=== PATIENT | female | born 1980 | race Two or more races ===

== ENCOUNTER 2019-10-01 19:37 | Emergency (ER) | payer SELFPAY ==
[~2019-10-01] VITALS: Ht 152.4 cm; Wt 77.2 kg
[2019-10-01 20:23] LABS: BILIRUBIN,URINE SMALL (NEG); CLARITY,URINE CLEAR; COLOR,URINE YELLOW; NITRITE,URINE NEGATIVE (NEG); PH,URINE 5.5; PROTEIN,URINE 30 mg/dL (NEG-TRACE); UROBILINOGEN,URINE 0.2 mg/dL (0.2 mg/dL)
[2019-10-01 20:28] LABS: BACTERIA,URINE 0 /HPF (0-FEW); SQUAMOUS EPITHELIAL CELL,UR MOD /LPF
[2019-10-01] MEDS ORDERED: FAMOTIDINE 20 MG/2 ML VIAL IVP ONE (20:30)
[2019-10-01] MEDS ORDERED: ONDANSETRON PF 4 MG/2 ML VIAL. IV ONE (20:30)
[2019-10-01] MEDS ORDERED: IV NORMAL SALINE 1000ML BAG 1,000 ML IV ONE (20:30)
[2019-10-01 20:40] LABS: BASO # 0.1 x10^3/uL (0.0-0.2); BASO % 0 % (0-3); EOS # 0.3 x10^3/uL (0.0-0.7); EOS % 2 % (0-3); HEMATOCRIT 43.6 % (36.0-47.0); HEMOGLOBIN 14.4 g/dL (12.0-15.5); LYMPH # 2.4 x10^3/uL (1.0-4.8); LYMPH % 18 % (24-48); MEAN CORPUSCULAR HEMOGLOBIN 29 pg (25-35); MEAN CORPUSCULAR HGB CONC 33 g/dL (31-37); MEAN CORPUSCULAR VOLUME 88 fL (79-100); MONO % 8 % (0-9); NEUT # 9.6 x10^3/uL (1.8-7.7); NEUT % 72 % (31-73); PLATELET COUNT 279 x10^3/uL (140-400); RED BLOOD COUNT 4.96 x10^6/uL (3.50-5.40); RED CELL DISTRIBUTION WIDTH 13.1 % (11.5-14.5); WHITE BLOOD COUNT 13.4 x10^3/uL (4.0-11.0)
[2019-10-01 20:47] LABS: GFR 62.1; POTASSIUM 3.5 mmol/L (3.5-5.1)
[2019-10-01 20:54] LABS: ALBUMIN 4.4 g/dL (3.4-5.0); ALBUMIN/GLOBULIN RATIO 0.9 (1.0-1.7); TOTAL BILIRUBIN 0.6 mg/dL (0.2-1.0); TOTAL PROTEIN 9.5 g/dL (6.4-8.2)
[2019-10-01] MEDS ORDERED: IOHEXOL 300 MG/ML 100ML VIAL. ONE (21:26)
--- NOTE | 2019-10-01 22:09 | RAD ---
EXAM: CT Abdomen and Pelvis with IV contrast INDICATION: TECHNIQUE: Multi-detector row CT images were acquired from the lung bases through the abdomen and pelvis with the use of IV contrast. Sagittal and coronal images were acquired from the transaxial data. All CT scans performed at this facility utilize dose optimization techniques as appropriate to the exam, including the following: Automated exposure control and adjustment of the mA and/or KV according to patient size (this includes techniques or standardized protocols for targeted exams where dose is indication/reason for exam). IV CONTRAST: Administered ORAL CONTRAST: Not administered COMPARISON: None FINDINGS: LOWER CHEST: Unremarkable LIVER: Enlarged, low-density liver consistent with fatty infiltration diffusely. BILIARY SYSTEM: Gallbladder is unremarkable. Bile ducts are not dilated. PANCREAS: Unremarkable SPLEEN: Unremarkable ADRENALS: Unremarkable KIDNEYS & URETERS: Unremarkable BLADDER: Unremarkable REPRODUCTIVE ORGANS: Unremarkable GASTROINTESTINAL: The stomach, small bowel, and colon are unremarkable. The appendix is normal. MESENTERY/PERITONEUM/RETROPERITONEUM: Unremarkable VASCULAR: Unremarkable LYMPH NODES: No adenopathy OSSEOUS & SOFT TISSUES: Unremarkable IMPRESSION: Hepatomegaly and hepatic steatosis. Correlate for steatohepatitis. Otherwise no acute findings in the abdomen or pelvis on CT. Electronically signed by: Lauri Beverly MD (10/01/2019 10:07 PM) [id number]
[2019-10-01] MEDS ORDERED: ONDA-84 PO (22:33)
--- NOTE | 2019-10-01 22:34 | PHYS DOC ---
Past Medical History Past Medical History: No Pertinent History (SAUD BELTRAN APRN) Past Surgical History: No Surgical History (SAUD BELTRAN APRN) Smoking Status: Never Smoker Alcohol Use: None (SAUD BELTRAN APRN) Attending Signature I have participated in the care of this patient and I have reviewed and agree with all pertinent clinical information above including history, exam, and recommendations. (MARYJANE BUTLER MD) Adult General Chief Complaint Chief Complaint: NAUSEA/VOMITING/DIARRHA HPI HPI Patient is a 39 year old female, accompanied by her son, who presents to the emergency department with complaints of abdominal pain, nausea, vomiting, and diarrhea for the last 3 days. Patient also complains of having a headache, she denies any vision changes, numbness, tingling, weakness, or ear pain. Patient denies any fever, cough, shortness of breath, wheezing, chest pain, increased urinary frequency, dysuria, or hematuria. Patient states that she has had 7-8 episodes of vomiting in 7-8 episodes of diarrhea today. She denies any blood in her stools. She currently rates her pain 8 out of 10 on the pain scale, she d enies any alleviating factors. Patient reports her last menstrual cycle started today. (SAUD BELTRAN APRN) Review of Systems Review of Systems Complete ROS is negative unless otherwise noted in HPI. (SAUD BELTRAN APRN) Current Medications Current Medications Current Medications Medications (Trade) Dose Ordered Sig/Isaiah Start Time Stop Time Status Last Admin Dose Admin Famotidine (Pepcid Vial) 20 mg 1X ONCE 10/01/19 20:30 10/01/19 20:31 DC 10/01/19 20:46 20 MG Iohexol (Omnipaque 300 Mg/ml) 100 ml STK-MED ONCE 10/01/19 21:26 10/01/19 21:26 DC Ondansetron HCl (Zofran) 4 mg 1X ONCE 10/01/19 20:30 10/01/19 20:31 DC 10/01/19 20:46 4 MG Sodium Chloride 1,000 ml @ 1,000 mls/hr 1X ONCE 10/01/19 20:30 10/01/19 21:29 DC 10/01/19 20:46 1,000 MLS/HR (MARYJANE BUTLER MD) Allergies Allergies Allergies Coded Allergies Type Severity Reaction Last Updated Verified No Known Drug Allergies 10/01/19 No (MARYJANE BUTLER MD) Physical Exam Physical Exam See Above Constitutional: Well developed, well nourished, no acute distress, non-toxic appearance. [] HENT: Normocephalic, atraumatic, bilateral external ears normal, nose normal. [] Eyes: PERRLA, EOMI, conjunctiva normal, no discharge. [] Neck: Normal range of motion, no stridor. [] Cardiovascular:Heart rate regular rhythm, no murmur [] Lungs & Thorax: Bilateral breath sounds clear to auscultation, Respirations even and unlabored, no retractions, no respiratory distress [] Abdomen: Bowel sounds normal, soft, LLQ TTP, no rebound tenderness, no guarding, no masses, no pulsatile masses. [] Skin: Warm, dry, no erythema, no rash. [] Back: No CVA tenderness. [] Extremities: No cyanosis, ROM intact, no edema. [] Neurologic: Alert and oriented X 3, no focal deficits noted. [] Psychologic: Affect normal, judgement normal, mood normal. [] (SAUD BELTRAN APRN) Current Patient Data Vital Signs Vital Signs Date Time Temp Pulse Resp B/P (MAP) Pulse Ox O2 Delivery O2 Flow Rate FiO2 10/01/19 22:45 78 16 98/55 (69) 97 Room Air 10/01/19 20:02 98.3 98.3 (MARYJANE BUTLER MD) Lab Values Laboratory Tests Test 10/01/19 20:05 10/01/19 20:11 10/01/19 20:30 Urine Collection Type Unknown Urine Color Yellow Urine Clarity Clear Urine pH 5.5 Urine Specific [place] >=1.030 Urine Protein 30 mg/dL (NEG-TRACE) Urine Glucose (UA) Negative mg/dL (NEG) Urine Ketones (Stick) Negative mg/dL (NEG) Urine Blood Moderate (NEG) Urine Nitrite Negative (NEG) Urine Bilirubin Small (NEG) Urine Urobilinogen Dipstick 0.2 mg/dL (0.2 mg/dL) Urine Leukocyte Esterase Negative (NEG) Urine RBC 1-2 /HPF (0-2) Urine WBC 1-4 /HPF (0-4) Urine Squamous Epithelial Cells Mod /LPF Urine Bacteria 0 /HPF (0-FEW) Urine Mucus Marked /LPF POC Urine HCG, Qualitative Hcg negative (Negative) White Blood Count 13.4 x10^3/uL (4.0-11.0) H Red Blood Count 4.96 x10^6/uL (3.50-5.40) Hemoglobin 14.4 g/dL (12.0-15.5) Hematocrit 43.6 % (36.0-47.0) Mean Corpuscular Volume 88 fL (79-100) Mean Corpuscular Hemoglobin 29 pg (25-35) Mean Corpuscular Hemoglobin Concent 33 g/dL (31-37) Red Cell Distribution Width 13.1 % (11.5-14.5) Platelet Count 279 x10^3/uL (140-400) Neutrophils (%) (Auto) 72 % (31-73) Lymphocytes (%) (Auto) 18 % (24-48) L Monocytes (%) (Auto) 8 % (0-9) Eosinophils (%) (Auto) 2 % (0-3) Basophils (%) (Auto) 0 % (0-3) Neutrophils # (Auto) 9.6 x10^3/uL (1.8-7.7) H Lymphocytes # (Auto) 2.4 x10^3/uL (1.0-4.8) Monocytes # (Auto) 1.0 x10^3/uL (0.0-1.1) Eosinophils # (Auto) 0.3 x10^3/uL (0.0-0.7) Basophils # (Auto) 0.1 x10^3/uL (0.0-0.2) Sodium Level 137 mmol/L (136-145) Potassium Level 3.5 mmol/L (3.5-5.1) Chloride Level 101 mmol/L (98-107) Carbon Dioxide Level 22 mmol/L (21-32) Anion Gap 14 (6-14) Blood Urea Nitrogen 19 mg/dL (7-20) Creatinine 1.0 mg/dL (0.6-1.0) Estimated GFR (Cockcroft-Gault) 62.1 BUN/Creatinine Ratio 19 (6-20) Glucose Level 111 mg/dL (70-99) H Calcium Level 9.0 mg/dL (8.5-10.1) Magnesium Level 2.0 mg/dL (1.8-2.4) Total Bilirubin 0.6 mg/dL (0.2-1.0) Aspartate Amino Transferase (AST) 24 U/L (15-37) Alanine Aminotransferase (ALT) 40 U/L (14-59) Alkaline Phosphatase 88 U/L (46-116) Total Protein 9.5 g/dL (6.4-8.2) H Albumin 4.4 g/dL (3.4-5.0) Albumin/Globulin Ratio 0.9 (1.0-1.7) L Laboratory Tests 10/01/19 20:30 Laboratory Tests 10/01/19 20:30 (MARYJANE BUTLER MD) EKG EKG [] (SAUD BELTRAN APRN) Radiology/Procedures Radiology/Procedures PROCEDURE: CT ABD PELV W/ IV CONTRST ONLY EXAM: CT Abdomen and Pelvis with IV contrast INDICATION: TECHNIQUE: Multi-detector row CT images were acquired from the lung bases through the abdomen and pelvis with the use of IV contrast. Sagittal and coronal images were acquired from the transaxial data. All CT scans performed at this facility utilize dose optimization techniques as appropriate to the exam, including the following: Automated exposure control and adjustment of the mA and/or KV according to patient size (this includes techniques or standardized protocols for targeted exams where dose is indication/reason for exam). IV CONTRAST: Administered ORAL CONTRAST: Not administered COMPARISON: None FINDINGS: LOWER CHEST: Unremarkable LIVER: Enlarged, low-density liver consistent with fatty infiltration diffusely. BILIARY SYSTEM: Gallbladder is unremarkable. Bile ducts are not dilated. PANCREAS: Unremarkable SPLEEN: Unremarkable ADRENALS: Unremarkable KIDNEYS & URETERS: Unremarkable BLADDER: Unremarkable REPRODUCTIVE ORGANS: Unremarkable GASTROINTESTINAL: The stomach, small bowel, and colon are unremarkable. The appendix is normal. MESENTERY/PERITONEUM/RETROPERITONEUM: Unremarkable VASCULAR: Unremarkable LYMPH NODES: No adenopathy OSSEOUS & SOFT TISSUES: Unremarkable IMPRESSION: Hepatomegaly and hepatic steatosis. Correlate for steatohepatitis. Otherwise no acute findings in the abdomen or pelvis on CT. Electronically signed by: Lauri Beverly MD (10/01/2019 10:07 PM) [] (SAUD BELTRAN APRN) Course & Med Decision Making Course & Med Decision Making Pertinent Labs and Imaging studies reviewed. (See chart for details) Is a 39-year-old female who presents to the emergency department with complaints of nausea, vomiting, diarrhea, abdominal pain for the last 3 days. She was given a liter of normal saline, 20 mg of Pepcid, and or milligrams of Zofran in the emergency department. Her CT abdomen and pelvis revealed hepatomegaly and hepatosteatosis. CBC revealed a white blood cell count 13.4; MB revealed a glucose of 111 normal liver enzymes otherwise unremarkable; UA was negative for any acute findings, negative hCG. Patient's vital signs are stable throughout her emergency department visit. The patient reported feeling better after IV fluids and medications. Prescription was written for Zofran to take as needed for nausea. Recommend clear liquid diet for 24 hours then advance as tolerated starting a bland foods. Follow-up with the primary care doctor in 1-2 days, return to the ER symptoms worsen. Patient verbalized an understanding of home care, medications, follow-up, and return to ED instructions and was in agreement with the plan of care. [] (SAUD BELTRAN APRN) Dragon Disclaimer Dragon Disclaimer This electronic medical record was generated, in whole or in part, using a voice recognition dictation system. (SAUD BELTRAN APRN) Departure Departure Impression: Primary Impression: Nausea, vomiting, and diarrhea Disposition: 01 HOME, SELF-CARE Condition: STABLE Referrals: NO PCP (PCP) Patient Instructions: Diet for Diarrhea, Adult, Nausea and Vomiting, [id number] Additional Instructions: Fill prescriptions and use them as directed. Recommend clear fluids for the next 24 hours. Then you may advance to bland foods such as bananas, rice, applesauce, and dry toast. Follow-up with your primary care doctor in the next 1-2 days. Return to the emergency room if your symptoms worsen. Scripts Ondansetron Hcl (ONDANSETRON HCL) 4 Mg Tablet 1 TAB PO PRN Q6HRS PRN for NAUSEA/VOMITING for 3 Days, #10 TAB 0 Refills Prov: SAUD BELTRAN APRN 10/01/19 SAUD BELTRAN APRN Oct 01, 2019 22:34 MARYJANE BUTLER MD Oct 03, 2019 05:37
[2019-10-01 22:45] VITALS: BP 98/55
== END 2019-10-01 22:50 | disposition home or self-care (01) ==
LOC: ER 19:37
DX: R10.32 Left lower quadrant pain (principal); R11.2 Nausea with vomiting, unspecified; R19.7 Diarrhea, unspecified; R51 Headache
CPT/HCPCS: 36415; 74177; 80053; 81001; 81025; 83735; 85025; 96361; 96374; 96375; 99285; J2405; J3490; J7030